=== PATIENT | female | born 1995 | race Caucasian/White ===

== ENCOUNTER 2017-02-25 09:12 | Outpatient (CLI) | payer OTHER ==
--- NOTE | 2017-02-25 21:03 | Ultrasound Report ---
EXAM: PELVIC ULTRASOUND EXAM DATE: 02/25/2017 10:45 AM. CLINICAL HISTORY: Surveillance of intrauterine device. COMPARISON: None. TECHNIQUE: Realtime transabdominal pelvic scan performed to identify the uterus and adnexa and as an overview of other pelvic structures, followed by transvaginal scan to provide greater detail of the u terus and adnexa, with static image documentation. FINDINGS: Uterus: 8.1 x 3.4 x 4.6 cm, volume 67 cc. Anteverted position. Normal overall size and echotexture. Masses: None. Endometrium: 10 mm. Intrauterine device is present although possibly in a low position. This is subop timally seen in the examination. Cervix: Unremarkable. Right Ovary: 3.3 x 1.6 x 2.7 cm, volume 7.5 cc. Normal echotexture and blood flow. Left Ovary: 2.4 x 1.9 x 2.2 cm, volume 5.5 cc. Normal echotexture and blood flow. Free Fluid: Trace Other: None. IMPRESSION: 1. Intrauterine device is present within the endometrial cavity. The IUD is suboptimally seen althoug h the position appears low near the lower uterine segment. 2. Unremarkable sonographic appearance of the ovaries. [facility] Referring Provider Line: [phone] SITE ID: [id number]
== END 2017-02-25 09:13 | disposition home or self-care (01) ==
LOC: DI 09:12
PROVIDERS: ATTEND Registered Nurse
DX: T83.39XA Other mechanical complication of intrauterine contraceptive device, initial encounter (principal)
CPT/HCPCS: 76830; 76856

== ENCOUNTER 2017-07-03 11:10 | Outpatient (CLI) | payer OTHER, MEDICAID ==
[2017-07-03 12:17] LABS: HCG UR QUAL NEGATIVE
== END 2017-07-03 11:11 | disposition home or self-care (01) ==
LOC: LAB 11:10
PROVIDERS: ATTEND Obstetrics & Gynecology
DX: Z01.812 Encounter for preprocedural laboratory examination (principal); T83.32XA Displacement of intrauterine contraceptive device, initial encounter
CPT/HCPCS: 81025

== ENCOUNTER 2017-07-05 07:32 | Day surgery (SDC) | payer OTHER, MEDICAID ==
--- NOTE | 2017-07-03 12:58 | PREOP HISTORY & PHYSICAL ---
IDENTIFICATION: This is a 21-year-old G1, P1-0-0-1. HISTORY OF PRESENT ILLNESS: The patient presents today for her scheduled preoperative visit. She has been scheduled for outpatient hysteroscopy dilatation and curettage for removal of a displaced Mirena IUD. She was seen here at [facility] initially on 08/26/2016, with suspicion of a displaced Mirena IUD. She states that she had a Mirena IUD placed at 6 weeks and her noted "something poking" him. The patient states that she was able to feel plastic rather than just a strings. The IUD was attempted to be removed on 08/26/2016 as well as 02/20/2017. The patient could not tolerate removal here in the office. The patient has desired removal of the Mirena IUD in the operating room. Currently she is doing well. Denies any nausea, vomiting, fevers, chills, diarrhea or constipation. She is currently accompanied by her son, Manuel. PAST MEDICAL HISTORY: Anxiety. PAST SURGICAL HISTORY: None. ALLERGIES: NO KNOWN DRUG ALLERGIES. MEDICATIONS: Citalopram 10 mg. SOCIAL HISTORY: She denies any tobacco or illicit drug use. She consumes alcohol twice a week. She is a homemaker. She is to Gabo, who is currently employed with the [employer] and is deployed. They have a little boy, Manuel. Her pharmacy of choice is [facility] in [place], [place]. PAST OBSTETRICAL HISTORY: One term spontaneous vaginal delivery weighing 8 pounds 10 ounces. She does desire to have more children in the future. PAST GYNECOLOGIC HISTORY: She denies any abnormal Pap smears. Menses are described as monthly and she bleeds for 5 days. She did have significant bleeding and cramping in the past, she would change a pad every hour. Her Mirena IUD was placed in [place] at the [facility]. Currently she desires not to go on any sort of control since her is deployed. FAMILY HISTORY: She denies any female carcinoma. REVIEW OF SYSTEMS: Negative unless otherwise stated. PHYSICAL EXAMINATION VITAL SIGNS: Height is 64 inches, weight 173 pounds, BMI is 30, blood pressure 104/68. GENERAL: She is a well-developed, well-nourished, female in no apparent distress. She is alert and oriented x3. She is very pleasant and easy to speak to. HEENT: Within normal limits. HEART: Rate is regular. No murmurs or rubs. LUNGS: Clear to auscultation bilaterally. ABDOMEN: Soft, nontender. No masses, rebound, rigidity, or guarding. LABORATORY DATA: On 02/25/2017, pelvic ultrasound revealed the uterus was measuring 8.1 x 3.4 x 4.6 cm and is anteverted. Endometrium measures 10 mm. IUD was present, although possibly in low position, suboptimally seen. Right ovary measures 3.3 x 1.6 x 2.7 cm and left ovary 2.4 x 1.9 cm and there is trace free fluid. ASSESSMENT 1. A 21-year-old G1, P1-0-0-1. 2. Displaced Mirena intrauterine device, which is low in the uterus. PLAN 1. Discussed with her the risks, benefits, alternatives, indications, expectations of removal of the Mirena IUD with possible hysteroscopy, dilatation and curettage, as well as laparoscopy. Included in our discussion were the risks of hemorrhage, infection, damage to surrounding organs, which in this case would most likely be inadvertent uterine perforation. After all of her questions were answered to her satisfaction, she verbalized her desire to proceed with surgery. Consent forms have been signed. 2. She will get a urine test today in preparation for surgery. 3. I have encouraged her to take [id number] Motrin 200 mg 4 tabs p.o. q.6 hours, as well as Tylenol 325 mg 2 tabs p.o. q.6 hours for pain. I have also written for her a prescription for Vicodin for breakthrough pain, #15. 4. She will see us at [facility] in 2 weeks for routine examination. 5. Dr. Martinez to perform surgery on the patient as I am unfortunately unavailable on Monday. TD: 07/03/2017 12:57 JOHN
[~2017-07-05 07:32] MED LIST: CELECOXIB 100 MG CAPSULE PO ONE
[2017-07-05] MEDS ORDERED: LACTATED RINGERS 1,000 ML IV ONE (07:36)
[2017-07-05] MEDS ORDERED: PROPOFOL 200 MG/20 ML VIAL IVP ONE (09:44)
[2017-07-05] MEDS ORDERED: fentaNYL 100 MCG/2 ML VIAL IVP ONE (09:44)
[2017-07-05] MEDS ORDERED: MIDAZOLAM 2 MG/2 ML VIAL IVP ONE (09:44)
[2017-07-05] MEDS ORDERED: ONDANSETRON 4 MG/2 ML VIAL IVP ONE (09:44)
[2017-07-05] MEDS ORDERED: ACETAMINOPHEN 1,000 MG/100 ML 100 ML IV ONE (09:44)
[2017-07-05] MEDS ORDERED: LIDOCAINE-MPF 2% 5 ML VIAL IM ONE (09:44)
[2017-07-05] MEDS ORDERED: DEXAMETHASONE 4 MG/ML VIAL IVP ONE (09:44)
[2017-07-05] MEDS: HYDROmorphone 1 MG/ML SYRINGE ONE ×2 (10:18→10:24)
--- NOTE | 2017-07-05 10:51 | OPERATIVE REPORT ---
DATE OF SERVICE: 07/05/2017 Physician: Freeman Sanchez MD PREOPERATIVE DIAGNOSIS: Retained Mirena intrauterine device. POSTOPERATIVE DIAGNOSIS: Retained Mirena intrauterine device. PROCEDURE PERFORMED: Hysteroscopy, with removal of IUD. SURGEON: Freeman Sanchez MD ANESTHESIA: Natalio Clayton via LMA. FINDINGS: IUD lodged transversely at the level of the internal os of the cervix. Normal endometrial cavity. Uterus sounded to 6 cm. ESTIMATED BLOOD LOSS: 5 mL SPECIMENS TO PATHOLOGY: Mirena IUD for identification. PROCEDURE: Following adequate general anesthesia via an LMA. The patient was prepped and draped in the usual fashion. At this point, timeout was performed, which concerns were identified. A speculum was placed in the vagina. The cervix was visualized, grasped with a single-tooth tenaculum anteriorly. The cervix was then dilated up to 6 mm. A MyoSure hysteroscope was attempted to be introduced; however, it was unsuccessful. The cervix was then dilated an additional mm to 7 mm, at which point the scope was able to be placed. The entire endometrial cavity was inspected. The cornea appeared to be normal as well as endometrial cavity. The IUD was not seen; however, it was noted to be at the level of the internal os of the cervix and appeared to be transverse in its location. At this point, the scope was removed. The strings were grasped with a ring forceps and pulled. There was mild to moderate amount of resistance. However, the IUD came out in total. The hysteroscope was reintroduced and there was no evidence of any remaining tissue. There was no evidence of any bleeding. The IUD was inspected to make sure that it was removed completely and this was assured. At this point, the procedure was terminated. The cervix was released from the single-tooth tenaculum. Speculum was removed. The I's and O's showed an excess of a deficit of 150 mL of normal saline. The patient tolerated the procedure well and was taken to recovery in stable condition. Sponge and needle counts were correct. TD: 07/05/2017 10:50
[2017-07-05 11:14] VITALS: BP 109/53
== END 2017-07-05 07:33 | disposition home or self-care (01) ==
LOC: SDS 07:32
PROVIDERS: ATTEND Obstetrics & Gynecology
PROC: 0UC98ZZ Extirpation of Matter from Uterus, Via Natural or Artificial Opening Endoscopic (ICD-10-PCS; principal; 2017-07-05 08:45)
DX: T83.32XA Displacement of intrauterine contraceptive device, initial encounter (principal)
CPT/HCPCS: 58562; A9270; J0131; J1170; J7120

== ENCOUNTER 2018-11-26 09:47 | Emergency (ER) | payer OTHER, MEDICAID ==
[2018-11-26 09:55] VITALS: BP 114/67
--- NOTE | 2018-11-26 10:04 | ED Physician Documentation ---
History of Present Illness - Stated complaint Stated Complaint: FEMALE - Chief complaint Chief Complaint: General - History obtained from History obtained from: Patient - History of Present Illness Timing: Other (She is having a week's worth of white vaginal discharge and severe vaginal irritation and itching. She was seen in a clinic and diagnosed with yeast infection by swab but did most Monistat and Diflucan without relief.) Review of Systems Constitutional: denies: Fever, Chills Respiratory: denies: Dyspnea, Cough GI: denies: Abdominal Pain, Nausea, Vomiting PD PAST MEDICAL HISTORY - Present Medications Home Medications: Ambulatory Orders Medication Instructions Recorded Confirmed Doxepin [SINEquan] 10 mg PO TID PRN #30 capsule 11/26/18 Fluconazole [Diflucan] 150 mg PO ONCE PRN #1 tablet 11/26/18 Metronidazole [Flagyl] 500 mg PO BID #14 tablet 11/26/18 - Allergies Allergies/Adverse Reactions: Allergies Allergy/AdvReac Type Severity Reaction Status Date / Time No Known Drug Allergies Allergy Verified 07/03/17 11:23 - Social History Does the pt smoke?: No Smoking Status: Never smoker PD ED PE NORMAL - Vitals Vital signs reviewed: Yes - General General: Alert and oriented X 3, No acute distress - Abdomen Abdomen: Soft, Non tender - Female Female : Deferred (She will self swab for wet mount) - Neuro Neuro: Alert and oriented X 3, Normal speech Results - Vitals Vitals: Vital Signs - 24 hr 11/26/18 09:51 Temperature 36.6 C Heart Rate 74 Respiratory 16 Rate Blood Pressure 114/67 O2 Saturation 100 Oxygen O2 Source Room air - Labs Labs: Microbiology 11/26/18 10:22 Wet Prep - Final Cervix Laboratory Tests 11/26/18 10:20 Urine Color YELLOW Urine Clarity CLEAR Urine pH 6.0 Ur Specific [place] 1.025 Urine Protein TRACE Urine Glucose (UA) NEGATIVE Urine Ketones NEGATIVE Urine Occult Blood TRACE-LYSE Urine Nitrite NEGATIVE Urine Bilirubin NEGATIVE Urine Urobilinogen 0.2 (NORMAL) Ur Leukocyte Esterase SMALL H Urine RBC 0-5 Urine WBC 6-10 H Ur Squamous Epith Cells MOD Squamous H Urine Bacteria Few Urine Mucus Few Strands Ur Microscopic Review INDICATED Urine Culture Comments NOT INDICATED Urine HCG, Qual NEGATIVE Departure - Departure Disposition: 01 Home, Self Care Clinical Impression: Bacterial vaginitis, Candidal vaginitis Condition: Good Record reviewed to determine appropriate education?: Yes Instructions: ED Vaginosis Bacterial Prescriptions: Doxepin [SINEquan] 10 mg PO TID PRN #30 capsule PRN Reason: Itching Fluconazole [Diflucan] 150 mg PO ONCE PRN #1 tablet PRN Reason: yeast infection Metronidazole [Flagyl] 500 mg PO BID #14 tablet Comments: Call your doctor to arrange a follow-up appointment, make the next available appointment. In the interim, return anytime if worse or if new symptoms develop.
[2018-11-26 10:33] LABS: BILIRUBIN,URINE NEGATIVE (NEGATIVE); GLUCOSE, URINE (UA) NEGATIVE (NEGATIVE); KETONES,URINE (UA) NEGATIVE (NEGATIVE); LEUKOCYTE ESTERASE, URINE SMALL (NEGATIVE); NITRITE,URINE NEGATIVE (NEGATIVE); OCCULT BLOOD,URINE TRACE-LYSE (NEGATIVE); PROTEIN,URINE TRACE mg/dL (NEGATIVE); UROBILINOGEN,URINE 0.2 (NORMAL) E.U./dL (NORMAL)
[2018-11-26 10:49] LABS: CLARITY,URINE CLEAR (CLEAR); HCG UR QUAL NEGATIVE
[2018-11-26 11:09] LABS: BACTERIA,URINE Few /HPF (None Seen); MUCUS,URINE Few Strands; RBC,URINE 0-5 /HPF (0-5); SQUAMOUS EPITHELIAL CELL,UR MOD Squamous (<= Few)
== END 2018-11-26 11:23 | disposition home or self-care (01) ==
LOC: ED 09:47
DX: N76.0 Acute vaginitis (principal); B96.89 Other specified bacterial agents as the cause of diseases classified elsewhere; B37.3 Candidiasis of vulva and vagina
CPT/HCPCS: 81001; 81003; 81025; 87086; 87210; 99283